=== PATIENT | male | born 1985 | race Caucasian/White ===

== ENCOUNTER 2023-02-16 19:04 | Emergency (ER) | payer OTHER ==
[2023-02-16 19:18] VITALS: BP 143/95; PULSE 78; RESP 18; TEMP 98.2; BMI 26.6
[2023-02-16] MEDS ORDERED: ACETAMINOPHEN 500 MG TABLET (FP) PO ONE (22:32)
[2023-02-16] MEDS ORDERED: BISACODYL 5 MG TABLET.DR (FP) PO ONE (22:35)
[2023-02-16] MEDS ORDERED: POLYETHYLENE GLYCOL (HEALTHYLAX) 3350 17 GM PACKET PO SCH (22:45)
[2023-02-16 22:52] LABS: PH,URINE 5.5 (5.0-8.0); URINE APPEARANCE CLEAR; URINE BILIRUBIN NEGATIVE (NEGATIVE); URINE COLOR YELLOW; URINE GLUCOSE (UA) NEGATIVE (NEGATIVE); URINE KETONE NEGATIVE (NEGATIVE); URINE LEUK ESTERASE NEGATIVE (NEGATIVE); URINE NITRITE NEGATIVE (NEGATIVE); URINE PROTEIN NEGATIVE (NEGATIVE); URINE UROBILINOGEN 0.2 mg/dL (0.2-1.0)
[2023-02-16] MEDS ORDERED: POLYETHYLENE GLYCOL (HEALTHYLAX) 3350 17 GM PACKET ONE (22:58)
[2023-02-16] MEDS ORDERED: ACETAMINOPHEN 325 MG TABLET (FP) ONE (22:58)
[2023-02-16 23:18] LABS: BASO % 0.3 % (0-2.0); EOS % 1.1 % (0-4.5); HEMATOCRIT 44.3 % (35.4-49); HEMOGLOBIN 15.3 GM/dL (11.7-16.9); LYMPH % 40.9 % (8-40); MCH 30.4 pg (25.7-33.7); MCHC 34.6 g/dl (32.0-35.9); MEAN CELL VOLUME 87.9 fl (80-96); MEAN PLT VOLUME 10.8 fl (7.5-11.1); MONO % 7.4 % (3.8-10.2); NEUT % 50.3 % (42.8-82.8); PLATELET COUNT 115 10^3/uL (134-434); RBC 5.04 M/mm3 (4.00-5.60); RDW 13.1 % (11.9-15.9); WHITE BLOOD COUNT 9.1 K/mm3 (4.0-10.0)
[2023-02-16 23:44] LABS: CALCIUM 9.1 mg/dL (8.5-10.1)
[2023-02-16 23:45] LABS: ALBUMIN 4.3 g/dl (3.4-5.0); BLOOD UREA NITROGEN 16.2 mg/dL (7-18); MAGNESIUM 1.9 mg/dL (1.8-2.4)
[2023-02-16 23:48] LABS: CREATININE 1.1 mg/dL (0.55-1.3); PHOSPHOROUS 3.1 mg/dL (2.5-4.9)
[2023-02-16 23:49] LABS: BILIRUBIN,TOTAL 0.7 mg/dL (0.2-1); TOT PROT 7.5 g/dl (6.4-8.2)
== END 2023-02-17 00:13 | disposition home or self-care (01) ==
LOC: JER 19:04
DX: K64.4 Residual hemorrhoidal skin tags (principal); N50.812 Left testicular pain; K59.00 Constipation, unspecified; R30.0 Dysuria; R10.33 Periumbilical pain; R10.13 Epigastric pain
CPT/HCPCS: 36415; 80053; 81003; 82272; 83690; 83735; 84100; 84484; 85025; 87086; 87491; 87591; 99283-25